=== PATIENT | male | born 1970 | race Two or more races ===

== ENCOUNTER 2024-04-28 09:08 | Emergency (ER) | payer MEDICAID, OTHER ==
[~2024-04-28] VITALS: Ht 180.3 cm; Wt 97.5 kg
--- NOTE | 2024-04-28 10:18 | ED.PDOC ---
Eye-HPI HPI Comments #Sore throat Started Denies chest pain shortness of breath Denies inability to move neck, history of meningitis Denies difficulty swallowing nor persistent salivation Denies fevers chills night sweats Denies persistent cough, runny nose, congestion Denies loss of appetite, unintentional weight loss over the past 3 months Denies voice changes Denies history of asthma or seasonal allergies Centor's criteria Look for anterior cervical lymphadenopathy Sandpaperlike rash Tonsillar exudate Tenderness over cervical lymph node Chief Complaint: Sore Throat Time Seen by MD: 09:54 Primary Care Provider: amol Reviewed Notes: Nurses Notes, Medications, Allergies Allergies: Coded Allergies: Iodine (Verified Allergy, Unknown, 04/28/24) Penicillins (Verified Allergy, Unknown, 04/28/24) Information Source: Patient Mode of Arrival: Ambulatory X-Ray, Labs, Meds, VS Vital Signs Date Time Temp Pulse Resp B/P (MAP) Pulse Ox O2 Delivery O2 Flow Rate FiO2 04/28/24 10:11 99.8 110 18 138/112 (121) 97 99.8 04/28/24 10:11 110 18 97 Room Air 04/28/24 09:25 99.8 110 18 138/112 (121) 97 BRENNON HILLIARD NP Apr 28, 2024 10:18
--- NOTE | 2024-04-28 10:52 | ED.PDOC ---
Eye-HPI HPI Comments 53-year-old male presents with a chief complaint of sore throat and throat swelling x 1 week. Patient denies difficulty swallowing, however states it is painful. Denies fever. He states he does have mild difficulty breathing. Patient has noticeable swelling to the right side of his throat. Patient is soft-spoken due to the pain from his throat. Patient denies any injuries or trauma prior to onset of symptoms. Patient was seen first at urgent care, but reports that they referred him to the ER. Chief Complaint: Sore Throat Time Seen by MD: 10:44 Primary Care Provider: amol Reviewed Notes: Medications, Allergies Allergies: Coded Allergies: Iodine (Verified Allergy, Unknown, 04/28/24) Penicillins (Verified Allergy, Unknown, 04/28/24) Information Source: Patient Mode of Arrival: Ambulatory Timing: Weeks Duration: Since onset Prehospital treatment: None Lids: Normal Conjunctiva: Normal Cornea: Normal Pupils: Normal EOM: Normal Fundus: Normal Slit lamp exam: Normal Anterior chamber: Normal ENT Ear Exam: Normal Nose: Normal Sinuses: Normal Oropharynx: Tonsillar hypertrophy Past Medical History PAST MEDICAL HISTORY: Denies Surgical History: Hernia Repair Surgical History (Other): Vasectomy Family History Family History: Reviewed,noncontributory to illness Social History Smoker: Non-Smoker Alcohol: Denies ETOH Use Drugs: Denies Drug Use Lives In: Home Constitutional: denies: chills, diaphoresis, fatigue, fever, malaise, sweats, weakness, others EENTM: reports: throat pain, throat swelling; denies: blurred vision, double vision, ear bleeding, ear discharge, ear drainage, ear pain, ear ringing, eye pain, eye redness, hearing loss, mouth pain, mouth swelling, nasal discharge, nose bleeding, nose congestion, nose pain, photophobia, tearing, voice changes, others Respiratory: denies: cough, hemoptysis, orthopnea, SOB at rest, shortness of breath, SOB with excertion, stridor, wheezing, others Cardiovascular: denies: chest pain, dizzy spells, diaphoresis, Dyspnea on exertion, edema, irregular heart beat, left arm pain, lightheadedness, palpitations, PND, syncope, others Gastrointestinal: denies: abdomen distended, abdominal pain, blood streaked bowels, constipated, diarrhea, dysphagia, difficulty swallowing, hematemesis, melena, nausea, poor appetite, poor fluid intake, rectal bleeding, rectal pain, vomiting, others Genitourinary: denies: burning, dysuria, flank pain, frequency, hematuria, incontinence, penile discharge, penile sore, pain, testicle pain, testicle swelling, urgency, others Neurological: denies: dizziness, fainting, headache, left sided numbness, left sided weakness, numbness, paresthesia, pre-existing deficit, right sided numbness, right sided weakness, seizure, speech problems, tingling, tremors, w eakness, others Musculoskeletal: denies: back pain, gout, joint pain, joint swelling, muscle pain, muscle stiffness, neck pain, others Integumetry: denies: bruises, change in color, change in hair/nails, dryness, laceration, lesions, lumps, rash, wounds, others Allergic/Immunocompromised: denies: Difficulty Healing, Frequent Infections, Hives, Itching, others Hematologic/Lymphatic: denies: anemia, blood clots, easy bleeding, easy bruising, swollen glands, others Endocrine: denies: excessive hunger, excessive sweating, excessive thirst, excessive urination, flushing, intolerance to cold, intolerance to heat, unexplained weight gain, unexplained weight loss, others Psychiatric: denies: anxiety, bipolar disorder, depression, hopeless, panic disorder, schizophrenia, sleepless, suicidal, others All Other Systems: Reviewed and Negative Physical Exam General Appearance: No Apparent Distress, Normal HEENT: Other (Moderate bilateral, right greater than left pharyngeal erythema, edema and uvular deviation to the left. Tonsils not visualized.) Neck: Full Range of Motion, Normal Inspection Respiratory: Lungs Clear, No Accessory Muscle Use, No Respiratory Distress, Normal Breath Sounds Cardiovascular: No Edema, No JVD, Regular Rate/Rhythm Breast Exam: Deferred Gastrointestinal: Non Tender, Soft Genitalia: Deferred Pelvic: Deferred Rectal: Deferred Extremities: Normal inspection, Normal range of motion, Non-tender, No pedal edema Musculoskeletal : Apperance: Normal Neurologic: Alert (Oriented x4), Normal Affect, Normal Mood, Other (Ambulatory without difficulty. No gross focal deficit.) Cerebellar Function: NOT DONE Reflexes: NOT DONE Skin: Dry, Normal Color, Warm Lymphatic: NOT DONE Was a procedure done? Was a procedure done?: No EENT DIFF Eye: Viral Ear: Pharyngitis Sore Throat: Epiglottitis, Peritonsillar Abscess, Peritonsillar Cellulitis, Streptococcal, Viral Pharyngitis X-Ray, Labs, Meds, VS Vital Signs Date Time Temp Pulse Resp B/P (MAP) Pulse Ox O2 Delivery O2 Flow Rate FiO2 04/28/24 17:25 98.2 101 15 156/101 (119) 96 98.2 04/28/24 11:45 98.1 111 16 157/105 (122) 97 98.1 04/28/24 10:11 99.8 110 18 138/112 (121) 97 99.8 04/28/24 10:11 110 18 97 Room Air 04/28/24 09:25 99.8 110 18 138/112 (121) 97 Lab Test 04/28/24 13:55 04/28/24 10:55 Range/Units Lactic Acid Level 1.4 0.4-2.0 mmol/L White Blood Count 17.7 H 4.4-10.8 10^3/uL Red Blood Count 5.48 4.5-5.90 10^6/uL Hemoglobin 17.9 H 13.5-17.5 g/dL Hematocrit 51.8 41.0-53.0 % Mean Corpuscular Volume 94.5 80.0-100.0 fL Mean Corpuscular Hemoglobin 32.6 H 28.0-32.0 pg Mean Corpuscular Hemoglobin Concent 34.5 32.0-36.0 g/dL Red Cell Distribution Width 13.3 11.8-14.3 % Platelet Count 213 140-450 10^3/uL Mean Platelet Volume 9.0 6.9-10.8 fL Neutrophils (%) (Auto) 78.1 37.0-80.0 % Lymphocytes (%) (Auto) 13.4 10.0-50.0 % Monocytes (%) (Auto) 7.4 0.0-12.0 % Eosinophils (%) (Auto) 0.5 0.0-7.0 % Basophils (%) (Auto) 0.6 0.0-2.0 % Neutrophils # (Auto) 13.9 H 1.6-8.6 10 ^3/uL Lymphocytes # (Auto) 2.4 0.4-5.4 10 ^3/uL Monocytes # (Auto) 1.3 0-1.3 10 ^3/uL Eosinophils # (Auto) 0.1 0-0.8 10 ^3/uL Basophils # (Auto) 0.1 0-0.2 10 ^3/uL Nucleated Red Blood Cells 0.4 % Sodium Level 139 136-145 mmol/L Potassium Level 4.8 3.5-5.1 mmol/L Chloride Level 102 98-107 mmol/L Carbon Dioxide Level 27 20-31 mmol/L Anion Gap 10 5-15 Blood Urea Nitrogen 9 9-23 mg/dL Creatinine 0.97 0.700-1.30 mg/dL Glomerular Filtration Rate Calc 93 >90 mL/min BUN/Creatinine Ratio 9.3 L 10.0-20.0 Serum Glucose 114 H 74-106 mg/dL Calcium Level 11.0 H 8.7-10.4 mg/dL Current Medications Medications (Trade) Dose Ordered Sig/[place] Route Start Time Stop Time Status Last Admin Clindamycin Phosphate 50 ml @ 50 mls/hr ONCE ONCE IV 04/28/24 11:00 04/28/24 11:59 DC 04/28/24 11:57 Dexamethasone Sodium Phosphate (Decadron Injection) 10 mg ONCE ONCE IV 04/28/24 11:00 04/28/24 11:01 DC 04/28/24 11:58 Ketorolac Tromethamine (Toradol Injection) 30 mg ONCE ONCE IV 04/28/24 11:00 04/28/24 11:01 DC 04/28/24 11:58 Sodium Chloride 1,000 ml @ 1,000 mls/hr Q1H ONCE IV 04/28/24 11:00 04/28/24 11:59 DC 04/28/24 11:58 Acetaminophen (Tylenol Tablet) 975 mg ONCE ONCE PO 04/28/24 12:15 04/28/24 12:31 DC 04/28/24 12:56 X-Ray, Labs, Meds, VS Comment 53-year-old male with no significant past medical history complaining of sore throat x1 week with difficulty breathing Vitals remarkable for temperature 99.8, heart rate 110, BP 138/112 Oxygen saturation on room air 97% not hypoxic Exam remarkable for moderate to severe bilateral, right greater than left pharyngeal erythema, edema and uvular deviation to the left Rhythm strip independently interpreted by me: Sinus tach, rate 110, no ectopy. CT soft tissue neck without contrast: Impression: 1. Moderate asymmetric enlargement of the right lingual and palatine tonsils with an approximately 3.7 cm hypodense nodular structure. Evaluation is limited without intravenous contrast. This may represent tonsillar phlegmon/ abscess versus mass. Clinical correlation and further evaluation with postcontrast imaging is recommended. CBC remarkable for WBC 17.7, basic metabolic panel remarkable for calcium 11, lactate pending Patient treated with the following in the ED: 1 L 0.9 normal saline IV bolus, clindamycin 900 mg IV, Decadron 10 mg IV, Toradol 30 mg IV, Tylenol 975 mg p.o. On re-evaluation, patient is resting comfortably in no respiratory distress. Oxygen saturation normal on room air. Plan is to transfer the patient for higher level of care, ENT evaluation. Multiple facilities were contacted for transfer including [place], [facility], [facility], [facility], [facility], [facility] [facility] and many others. All facilities were at capacity and were unable to accept the transfer. At 1739, the patient stated he no longer wanted to wait for transfer and would like to leave and go to another hospital. Advised of the risks including persi stent or worsening symptoms, permanent disability or . He expressed understanding and insisted on leaving against medical advice. He was alert, oriented x4 and capable of making informed decisions at the time he signed out. Time of 1ST Reevaluation: 11:14 Reevaluation 1ST: Unchanged Time of 2ND Reevaluation: 17:40 Reevaluation 2ND: Improved Patient Education/Counseling: Diagnosis, Treatment, Prognosis Family Education/Counseling: No Family Present Departure 1 Departure Time of Disposition: 12:05 Impression: Primary Impression: Tonsillar abscess Disposition: 07 LEFT AGAINST MEDICAL ADVICE Condition: Guarded Discharged With: Spouse Critical Care Note Critical Care Time?: No Stability Stability form required: No Heart Score Heart Score: Heart Score Response (Comments) Value History N/A 0 EKG N/A 0 Age N/A 0 Risk Factors N/A 0 Troponin N/A 0 Total 0 I personally scribed for SAL THOMAS MD ([email or web address]) on 04/28/24 at 10:52. Electronically submitted by Norm Miranda ([email or web address]). SAL THOMAS MD Apr 28, 2024 10:52
--- NOTE | 2024-04-28 11:40 | DVH ---
CT NECK WITHOUT CONTRAST Clinical History: peritonsillar abscess Comparison: None Technique: Multiple contiguous CT images of the neck were obtained without intravenous contrast. The se images were reformatted degenerate coronal and sagittal reconstructions. Radiation Dose Information: CT Dose: CTDI volume is 15.96 mGy. Dose-length product is 423.31 mGy*cm Findings: Evaluation of the soft tissues of the neck is limited without intravenous contrast. There is moderate asymmetric enlargement of the right lingual and palatine tonsils with an approximat wilmer 3.6 x 3.7 cm hypodense nodular structure. There is no evidence of a soft tissue neck mass or pathologically enlarged cervical lymph nodes. The re are scattered subcentimeter lymph nodes which are not pathologic by size criteria. The salivary an d thyroid glands appear within normal limits. The visualized intracranial contents appear within normal limits. The lung apices are clear. The v isualized paranasal sinuses and mastoid air cells are also clear. The osseous structures appear within normal limits. Impression: 1. Moderate asymmetric enlargement of the right lingual and palatine tonsils with an approximately 3. 7 cm hypodense nodular structure. Evaluation is limited without intravenous contrast. This may repre sent tonsillar phlegmon/ abscess versus mass. Clinical correlation and further evaluation with postco ntrast imaging is recommended. HS:Y
[2024-04-28 11:42] LABS: Basophils # (auto) 0.1 10 ^3/uL (0-0.2); Basophils % (auto) 0.6 % (0.0-2.0); Chloride 102 mmol/L (98-107); Eosinophils # (auto) 0.1 10 ^3/uL (0-0.8); Eosinophils % (auto) 0.5 % (0.0-7.0); Hematocrit 51.8 % (41.0-53.0); Hemoglobin 17.9 g/dL (13.5-17.5); Lymphocytes # (auto) 2.4 10 ^3/uL (0.4-5.4); Lymphocytes % (auto) 13.4 % (10.0-50.0); Mean Corpuscular Hemoglobin 32.6 pg (28.0-32.0); Mean Corpuscular Hgb Conc. 34.5 g/dL (32.0-36.0); Mean Corpuscular Volume 94.5 fL (80.0-100.0); Monocytes # (auto) 1.3 10 ^3/uL (0-1.3); Monocytes % (auto) 7.4 % (0.0-12.0); Neutrophils # (auto) 13.9 10 ^3/uL (1.6-8.6); Neutrophils % (auto) 78.1 % (37.0-80.0); Nucleated Red Blood Cells % 0.4 %; Platelet Count (auto) 213 10^3/uL (140-450); Potassium 4.8 mmol/L (3.5-5.1); Red Blood Cells 5.48 10^6/uL (4.5-5.90); Red Cell Distribution Width 13.3 % (11.8-14.3); Sodium 139 mmol/L (136-145); White Blood Cell 17.7 10^3/uL (4.4-10.8)
[2024-04-28 11:43] LABS: Anion Gap 10 (5-15); Carbon Dioxide 27 mmol/L (20-31)
[2024-04-28 11:49] LABS: BUN/Creatinine Ratio 9.3 (10.0-20.0)
[2024-04-28 11:54] LABS: Blood Urea Nitrogen 9 mg/dL (9-23); Glucose 114 mg/dL (74-106)
[2024-04-28] MEDS: CLINDAMYCIN 900MG IV 50 ML IV ONE (11:57)
[2024-04-28] MEDS: KETOROLAC TROMETH 30 MG/ML 1ML VIAL IV ONE (11:58)
[2024-04-28] MEDS: SODIUM CHLORIDE 0.9% 1,000 ML IV ONE (11:58)
[2024-04-28] MEDS: DexAMETHasone SOD PHOS 10MG/1ML VIAL INJ IV ONE (11:58)
[2024-04-28] MEDS: ACETAMINOPHEN 325 MG TAB PO ONE (12:56)
[2024-04-28 17:25] VITALS: BP 156/101; PULSE 101; RESP 15; TEMP 98.2; O2SAT 96
== END 2024-04-28 17:45 | disposition left against medical advice (07) ==
LOC: ER 09:08
DX: J36 Peritonsillar abscess (principal); Z88.0 Allergy status to penicillin; Z88.8 Allergy status to other drugs, medicaments and biological substances; Z98.890 Other specified postprocedural states
CPT/HCPCS: 36415; 70490; 80048; 83605; 85025; 87040; 96365; 96375; 99285; J1100; J1885; J3490; J7030